=== PATIENT | female | born 1985 | race Caucasian/White ===

== ENCOUNTER → 2023-07-13 | Outpatient (CLI) | payer SELFPAY | LOC: LAB SHORT 16:30 → LAB 16:30 | DX: R10.9 Unspecified abdominal pain (principal) | CPT/HCPCS: 87086 ==

== ENCOUNTER → 2023-07-13 | Outpatient (CLI) | payer SELFPAY ==
[2023-07-15 15:07] LABS: HPV 16 Negative (Negative); HPV 18 Negative (Negative); HPV OTHER HR TYPES Negative (Negative)
== END ==
LOC: LAB 17:21 → LAB SHORT 17:21
PROVIDERS: Registered Nurse Community Health
DX: Z12.4 Encounter for screening for malignant neoplasm of cervix (principal)
CPT/HCPCS: 87624; G0145

== ENCOUNTER 2024-08-12 11:36 | Emergency (ER) | payer OTHER ==
[~2024-08-12] VITALS: Ht 165.1 cm; Wt 68.0 kg
[2024-08-12 11:47] VITALS: BP 112/89
[2024-08-12] MEDS ORDERED: Ondansetron 8 MG SoluTab SL ONE (12:20)
[2024-08-12] MEDS ORDERED: ACET500 PO (13:35)
[2024-08-12] MEDS ORDERED: ONDA4 PO (13:35)
== END 2024-08-12 13:34 | disposition other institution (70) ==
LOC: ER 11:36
DX: L03.811 Cellulitis of head [any part, except face] (principal)
CPT/HCPCS: 99283; A9270